=== PATIENT | male | born 1975 | race Caucasian/White ===

== ENCOUNTER 2017-03-07 18:07 | Emergency (ER) | payer BC ==
[2017-03-07 18:50] VITALS: BP 126/82
[2017-03-07] MEDS ORDERED: Azithromycin TAB* 250 MG PO ONE (19:38)
--- NOTE | 2017-03-07 19:38 | UC ---
Respiratory Complaint HPI - HPI Summary HPI Summary: Pt presents with c/o of cough, fatigue, fever, SOB X 10 days. - History of Current Complaint Chief Complaint: UCRespiratory Stated Complaint: COUGH Hx Obtained From: Patient Onset/Duration: Gradual Onset, Lasting Days - 10 Timing: Constant Severity Initially: Mild Severity Currently: Mild Character: Cough: Productive - yellow Aggravating Factors: Deep Breaths, Recumbent Position Associated Signs And Symptoms: Positive: Fever, Chills, Wheezing, URI, Nasal Congestion - Risk Factors Pulmonary Embolism Risk Factors: Smoking Cardiac Risk Factors: Smoking - Allergies/Home Medications Allergies/Adverse Reactions: Allergies Allergy/AdvReac Type Severity Reaction Status Date / Time No Known Allergies Allergy Verified 03/07/17 18:46 Home Medications: Home Medications guaiFENesin ER TAB [Mucinex*] 600 mg PO BID PRN 03/07/17 [History Confirmed ] PMH/Surg Hx/FS Hx/Imm Hx Previously Healthy: Yes - Surgical History Surgical History: Yes Surgery Procedure, Year, and Place: cyst - Family History Known Family History: Positive: Other - positive [facility] for URI - Social History Alcohol Use: Occasionally Substance Use Type: None Smoking Status (MU): Never Smoked Tobacco Review of Systems Constitutional: Fever, Chills, Fatigue Skin: Negative Eyes: Negative ENT: Negative Respiratory: Shortness Of Breath, Cough Cardiovascular: Negative Gastrointestinal: Negative Genitourinary: Negative Motor: Negative Neurovascular: Negative Musculoskeletal: Negative Neurological: Negative Psychological: Negative All Other Systems Reviewed And Are Negative: Yes Physical Exam Triage Information Reviewed: Yes Appearance: Ill-Appearing Vital Signs: Initial Vital Signs Temp 98.0 F 03/07/17 18:46 Pulse 75 03/07/17 18:46 Resp 16 03/07/17 18:46 BP 126/82 03/07/17 18:46 Pulse Ox 98 03/07/17 18:46 Eye Exam: Normal ENT Exam: Normal Neck exam: Normal Respiratory Exam: Other Respiratory: Positive: Decreased breath sounds - bilateral bases Cardiovascular Exam: Normal Musculoskeletal Exam: Normal Neurological Exam: Normal Psychological Exam: Normal Skin Exam: Normal UC Diagnostic Evaluation - Laboratory O2 Sat by Pulse Oximetry: 98 Respiratory Course/Dx - Differential Dx/Diagnosis Differential Diagnosis/HQI/PQRI: Bronchitis, Pulmonary Embolism Provider Diagnoses: Bronchitis Discharge - Discharge Plan Condition: Stable Disposition: HOME Prescriptions: Azithromycin TAB* [Zithromax TAB (Z-BRONWYN) 250 mg #6 tabs] 250 mg PO DAILY #4 tab Benzonatate CAP* [Tessalon 100 MG CAP*] 100 mg PO TID PRN #21 cap PRN Reason: Cough Fexofenadine (NF) [Federica 180 (NF)] 180 mg PO DAILY #10 tab predniSONE TAB* [Deltasone TAB*] 30 mg PO DAILY #9 tab Patient Education Materials: Acute Bronchitis (ED) Referrals: Diego Smith DO [Primary Care Provider] - If Needed
== END 2017-03-07 19:54 | disposition home or self-care (01) ==
LOC: UCCORT 18:07
DX: J20.9 Acute bronchitis, unspecified (principal); R50.9 Fever, unspecified
CPT/HCPCS: 99202; A9270-GY; G0463

== ENCOUNTER 2019-12-12 03:55 | Inpatient (IN) | payer BC ==
[2019-12-12] MEDS ORDERED: Ticagrelor* 90 MG TAB PO ONE (04:06)
[2019-12-12] MEDS ORDERED: Nitroglycerin TAB 0.4 MG* 0.4 MG TAB SL ONE (04:10)
--- NOTE | 2019-12-12 04:12 | ED ---
HPI Chest Pain - HPI Summary HPI Summary: Patient is a 44 y/o M presenting to [facility] via EMS with chief complaint of chest pain. Patient states that he has been experiencing intermittent chest pain over the past 3-4 days. This evening, his pain suddenly and significantly worsened, awakening him from sleep. Pain is characterized as a burning sensation. Pain at its worst was a 10/10 in severity. EMS was called and administered nitro x1 SL and 324 mg PO ASA. He states that the pain is improved slight and rates his current pain a 5/10 in severity. He notes that radiation of pain/numbness down his arms bilaterally onset during transport. He denies SOB, cough, dizziness, palpitations, pain to upper back. He is a current pack a day smoker. Patient reports that he is borderline for HTN and HLD, patient is not currently taking any BP or cholesterol medications. No Hx of diabetes reported. FMHx of AL in both parents is reported, patient states that his father had AL at his age and mother in her 50s. EMS arrived at 0354. EMS EKG suggest STEMI, STEMI code called at 0356. Home medications and allergies are reviewed. - History of Current Complaint Hx Obtained From: Patient Onset/Duration: Still Present Timing: Intermittent Initial Severity: Severe Current Severity: Moderate Pain Intensity: 5 Pain Scale Used: 0-10 Numeric Chest Pain Radiates: Yes Chest Pain Radiates To:: Arm Character: Burning Alleviating Factor(s): Medication, NTG 123, EMS Tx Associated Signs and Symptoms: Positive: Chest Pain. Negative: Dizziness, Shortness of Breath, Palpitations, Cough, Productive Cough, Nonproductive Cough , Back Pain - Allergy/Home Medications Allergies/Adverse Reactions: Allergies Allergy/AdvReac Type Severity Reaction Status Date / Time No Known Allergies Allergy Verified 12/12/19 04:14 Home Medications: Home Medications Azithromycin TAB* [Zithromax TAB (Z-BRONWYN) 250 mg #6 tabs] 250 mg PO DAILY #4 tab 03/07/17 [Rx] Benzonatate CAP* [Tessalon 100 MG CAP*] 100 mg PO TID PRN #21 cap 03/07/17 [Rx] Fexofenadine (NF) [Federica 180 (NF)] 180 mg PO DAILY #10 tab 03/07/17 [Rx] guaiFENesin ER TAB [Mucinex*] 600 mg PO BID PRN 03/07/17 [History Confirmed ] predniSONE 10 mg TAB [Deltasone 10 MG TAB*] 30 mg PO DAILY #9 tab 03/07/17 [Rx] PMH/Surg Hx/FS Hx/Imm Hx Endocrine/Hematology History: Denies: Hx Diabetes Cardiovascular History: Reports: Hx Hypercholesterolemia - borderline , Hx Hypertension - borderline - Surgical History Surgery Procedure, Year, and Place: cyst Infectious Disease History: Denies: Traveled Outside the [place] in Last 30 Days - Family History Known Family History: Positive: Cardiac Disease - Social History Alcohol Use: Occasionally Substance Use Type: Reports: None Smoking Status (MU): Current Some Day Smoker Review of Systems Constitutional: Other - negative - dizziness Positive: Chest Pain. Negative: Palpitations Negative: Shortness Of Breath, Cough Positive: Other - negative - back pain All Other Systems Reviewed And Are Negative: Yes Physical Exam - Summary Physical Exam Summary: Constitutional: Well-developed, Well-nourished, Alert. (-) Distressed Skin: Warm, Dry HENT: Normocephalic; Atraumatic Eyes: Conjunctiva normal Neck: Musculoskeletal ROM normal neck. (-) JVD, (-) Stridor, (-) Tracheal deviation Cardio: Rhythm regular, rate normal, Heart sounds normal; Intact distal pulses; The pedal pulses are 2+ and symmetric. Radial pulses are 2+ and symmetric. Pulmonary/Chest wall: Effort normal. (-) Respiratory distress, (-) Wheezes, (-) Rales Abd: Soft, (-) tenderness, (-) Distension, (-) Guarding, (-) Rebound Musculoskeletal: (-) Edema Neuro: Alert, Oriented x3 Psych: Mood and affect Normal Triage Information Reviewed: Yes Vital Signs On Initial Exam: Initial Vital Signs Temp 97.4 F 12/12/19 03:57 Pulse 60 12/12/19 03:57 Resp 17 12/12/19 03:57 BP 129/69 12/12/19 03:57 Pulse Ox 95 12/12/19 03:57 Vital Signs Reviewed: Yes Procedures - Sedation Patient Received Moderate/Deep Sedation with Procedure: No Diagnostics - Laboratory Result Diagrams: 12/12/19 04:02 12/12/19 04:02 Lab Statement: Any lab studies that have been ordered have been reviewed, and results considered in the medical decision making process. - Radiology CXR Radiology Interpretation Completed By: ED Physician Summary of Radiographic Findings: No acute process, pending official report. - EKG 0407 Cardiac Rate: NL - rate of 60 BPM EKG Rhythm: Sinus Rhythm Summary of EKG Findings: EKG showed sinus rhythm with rate of 60 BPM, positive inferior STEMI with ST elevation in leads II, III, and aVF. Reciprocal ST depression in lead aVF. ED physician has reviewed and interpreted this EKG. Chest Pain Course/Dx - Course Course Of Treatment: Patient is a 44 y/o M presenting to [facility] via EMS with chief complaint of chest pain. Patient states that he has been experiencing intermittent chest pain over the past 3-4 days. This evening, his pain suddenly and significantly worsened, awakening him from sleep. Pain is characterized as a burning sensation. Pain at its worst was a 10/10 in severity. EMS was called and administered nitro x1 SL and 324 mg PO ASA. He states that the pain is improved slight and rates his current pain a 5/10 in severity. He notes that radiation of pain/numbness down his arms bilaterally onset during transport. He denies SOB, cough, dizziness, palpitations, pain to upper back. He is a current pack a day smoker. Patient reports that he is borderline for HTN and HLD, patient is not currently taking any BP or cholesterol medications. No Hx of diabetes reported. FMHx of AL in both parents is reported, patient states that his father had AL at his age and mother in her 50s. EMS arrived at 0354. EMS EKG suggest STEMI, STEMI code called at 0356. ED EKG showed inferior STEMI with ST elevations in leads II, III, aVF and reciprocal ST depression in aVL. Patient 's case was discussed with Dr. Silvestre, who recommends Brillinta and Heparin. Dr. Silvestre will come to ED to evaluate the patient. During ED course, patient received heparin bolus of 4000 units, brillinta 180 mg PO, and nitro 0.4 mg SL. He was placed on heparin drip, 34946 units 20 mls/hr. CXR showed no acute process. Bloodwork was obtained. Trop was negative. BNP was 12. Only abnormal values were glucose 111, MCV 100, MCH 35. 0432 - Dr. Silvestre evaluated the patient and admitted the patient to the catheter lab. - Diagnoses Provider Diagnoses: STEMI (ST elevation myocardial infarction) - Provider Notifications Discussed Care Of Patient With: Yeyo Silvestre Time Discussed With Above Provider: 04:01 Instructed by Provider To: Other - Patient's case was discussed with Dr. Silvestre , who recommends Brillinta and Heparin. Dr. Silvestre will come to ED to evaluate the patient. 0432 - Dr. Silvestre evaluated the patient and admitted the patient to the catheter lab. Discharge ED - Sign-Out/Discharge Documenting (check all that apply): Patient Departure - admit - Discharge Plan Condition: Guarded Disposition: ADMITTED TO [facility] - Billing Disposition and Condition Condition: GUARDED Disposition: Admitted to [facility] - Attestation Statements Document Initiated by Nancy: Yes Documenting Scribe: DEA MILLER Provider For Whom Nancy is Documenting (Include Credential): WES KENNEDY MD Scribe Attestation: DEA Jewell, scribed for WES KENNEDY MD on 12/12/19 at 0649. Scribe Documentation Reviewed: Yes Provider Attestation: The documentation as recorded by the DEA brown accurately reflects the service I personally performed and the decisions made by me, WES KENNEDY MD Status of Scribe Document: Viewed
[2019-12-12 04:13] LABS: ABS Basophils 0.1 10^3/ul (0-0.2); ABS Eosinophils 0.5 10^3/ul (0-0.6); ABS Lymphocytes 2.8 10^3/ul (1.0-4.8); ABS Monocytes 0.7 10^3/ul (0-0.8); ABS Neutrophils 4.9 10^3/ul (1.5-7.7); Hematocrit 47 % (42-52); Hemoglobin 16.6 g/dL (14.0-18.0); Lymphocyte % 31.6 %; Mean Corpuscular HGB Conc 36 g/dL (31-36); Mean Corpuscular Hemoglobin 35 pg (27-31); Mean Corpuscular Volume 100 fL (80-94); Nucleated Red Blood Cells % 0.1; Platelet Count 256 10^3/uL (150-450); Red Cell Distribution Width 13 % (10-15)
[2019-12-12] MEDS ORDERED: Heparin DRIP 25,000 UNITS(*) 25,000 UNITS/500 ML BAG IV SCH (04:15)
[2019-12-12] MEDS ORDERED: Heparin 2 UNITS/ML IVPREMIX* 3,000 ML IV ONE (04:26)
[2019-12-12] MEDS ORDERED: VERAPAMIL 2.5 MG/ML 2 ML VIAL ** 5 mg/2 ml ONE (04:26)
[2019-12-12] MEDS ORDERED: nitroGLYCERIN DRIP* 25,000 MCG/250 ML BTL ONE (04:26)
[2019-12-12] MEDS ORDERED: Lidocaine 1% INJ* 10 MG/ML 30 ML SDV ONE (04:26)
[2019-12-12] MEDS ORDERED: Heparin(*) 1000 UNIT/ML 10 ML VIAL CATH LAB IV ONE (04:26)
[2019-12-12 04:27] LABS: Albumin 4.4 g/dL (3.2-5.2); Albumin/Globulin Ratio 1.8 (1-3); Calcium 9.3 mg/dL (8.6-10.3); EGFR African American 98.7 (>60); EGFR Non-African American 81.6 (>60); Globulin 2.5 g/dL (2-4); Potassium 3.8 mmol/L (3.5-5.0); Total Bilirubin 0.4 mg/dL (0.2-1.0); Total Protein 6.9 g/dL (6.4-8.9)
[2019-12-12] MEDS ORDERED: fentaNYL* 50 MCG/ML 2 ML VIAL (100 MCG VIAL) ONE (04:27)
[2019-12-12] MEDS ORDERED: Midazolam* 1 MG/ML 5 ML VIAL (5 MG) ONE (04:27)
[2019-12-12 04:30] LABS: Troponin I 0.01 ng/mL (<0.03)
[2019-12-12 04:36] LABS: Activated Partial Thrombo Time 31.3 seconds (26.0-38.0); INR 0.97 (0.82-1.09)
[2019-12-12] MEDS ORDERED: Iohexol 350 (CONTRAST) 200 ML MDV IV ONE ×3 (04:37→05:25)
[2019-12-12] MEDS ORDERED: Bivalirudin(*) 250 MG VIAL ONE (04:57)
[2019-12-12] MEDS ORDERED: Heparin VIAL(*) 5000 UNITS/ML VIAL (FIVE THOUSAND) IV SCH (05:00)
[2019-12-12] MEDS ORDERED: Zolpidem TAB* 5 MG PO PRN (05:42)
[2019-12-12] MEDS ORDERED: Docusate CAP* 100 MG PO PRN (05:42)
[2019-12-12] MEDS ORDERED: Acetaminophen TAB* 325 MG PO PRN (05:42)
[2019-12-12] MEDS ORDERED: Nitroglycerin TAB 0.4 MG* 0.4 MG TAB SL PRN (05:42)
[2019-12-12] MEDS ORDERED: NS 0.9% 1000 ML** 1,000 ML IV SCH (05:45)
[2019-12-12] MEDS ORDERED: Atorvastatin* 80 MG TAB PO ONE (05:51)
[2019-12-12] MEDS ORDERED: Atorvastatin* 80 MG TAB ONE (06:35)
--- NOTE | 2019-12-12 07:48 | HP ---
CC: Dr. Brock Euceda* ADMISSION HISTORY AND PHYSICAL: DATE OF ADMISSION: 12/12/19 CHIEF COMPLAINT: Chest discomfort with EKG by EMS suggesting ST segment elevation inferior wall myocardial infarction. HISTORY OF PRESENT ILLNESS: The patient is a 44-year-old gentleman who noticed over the past week or so having had multiple episodes of chest discomfort on and off, brief in nature. This morning in the early hours approximately 3 a.m. , he was awakened with worsening of these symptoms with a burning sensation in his chest, felt to be 10/10. He had radiation to the arms, but denied any specific shortness of breath, dizziness, or palpitations. He summoned the EMS. The EMS performed an EKG and were concerned about possible ST segment elevation inferior wall myocardial infarction. He received 1 nitroglycerin and 324 mg of aspirin. He was brought to the emergency room. In the emergency room , the EKG was repeated and felt to be STEMI and as such a STEMI alert was called. On my arrival, he still persisted with symptoms, albeit they were getting better but not gone. His EKG in the emergency room had revealed the ST segment elevation in III, more subtly in II and AVF and with mild ST elevation noted in the early precordial leads with reciprocal change in aVL and subtly in lead 1. He was given heparin bolus initially of 4000 with an additional 1000 units given on my arrival. In addition, he got 180 mg of Brilinta and had already received the aspirin therapy. Cardiac risk factors include a smoking history of 1 pack per day for many years. He has a family history with both his mother and father who had early heart attacks. He has reported borderline hypertension and hyperlipidemia and is not on any medication for it. He denies any diabetes. FAMILY HISTORY: Strong family history of early coronary artery disease both in his mother and his father. SOCIAL HISTORY: He smokes 1 pack per day as mentioned. REVIEW OF SYSTEMS: Pertinent to proceeding emergently to cardiovascular laboratory. The patient denies any history of stroke or TIA. Denies any history of hematochezia, hematemesis, or hematuria. He denies any history of kidney disease, and he is not allergic to contrast as best he knows. PHYSICAL EXAMINATION GENERAL: When I saw him in the emergency room, revealed a pleasant gentleman with chest discomfort still present. VITAL SIGNS: Blood pressure in the 120 to 130 range over 85, pulse in the 60s, respirations 20, O2 saturation 96%. NECK: Supple. No increased JVP. LUNGS: Clear with no active rales, rhonchi, or wheezes. HEART: Revealed no visible heaves. No palpable heaves or thrills. No significant systolic or diastolic murmur. ABDOMEN: Soft, nontender without organomegaly. EXTREMITIES: Without clubbing, cyanosis, or rachel pitting edema. Peripheral pulses were intact. The femoral pulses were noted without bruits. MUSCULOSKELETAL: The patient moves all extremities appropriate. PSYCHOLOGICAL: The patient with normal affect. NEUROLOGIC: The patient is alert and oriented with normal mentation. DIAGNOSTIC STUDIES/LAB DATA: EKG in the emergency room dated 12/12/19, time 4: 02 a.m., revealed sinus bradycardia, heart rate 59, mild ST segment elevation seen in II and aVF, and more prominent in III with reciprocal changes in aVL, and borderline biphasic T wave in I, mild ST elevation seen in V1 and V2. A repeat EKG done, time 4:07, revealed similar findings. OVERALL ASSESSMENT: Chauncey now presents with progressive angina pectoris culminating in an episode of continued chest discomfort starting approximately 3 a.m. His EKG is suggestive of an acute ST segment elevation inferior wall myocardial infarction and he has been appropriately given aspirin, Brilinta, and heparin therapy. The risks and benefits of cardiac catheterization were explained to him and he understood them and wished to proceed. Further management will be made pending the results of his cardiac catheterization. [id number]/CPS #: [id number] MTDD
[2019-12-12] MEDS ORDERED: Metoprolol Tartrate TAB* 25 MG PO SCH (09:00)
--- NOTE | 2019-12-12 09:07 | ECHO ---
*[facility]* [place] [address] Fax #: [phone] Transthoracic Echocardiogram Patient: Chauncey Nolan : 1975 Study Date: 12/12/2019 Age: 44 Gender: M HR: 55 bpm Height: 67 in /170.2 cm BSA: 2.02 m^2 Weight: 199.6 lb /90.7 kg BMI: 31.3 kg/m^2 *Site Specialist: * Ruth Garcia [facility] *Referring Physician: * Yeyo Silvestre MD *Reading Physician: * Esequiel Olmos MD Indications: Myocardial Infarction (new). History: Risk factors: Current tobacco use. Borderline Hypertension. Dyslipidemia. Conclusions Summary: - Left ventricle: The estimated ejection fraction is 50-55%. Hypokinesis of the basalinferoseptal myocardium. Hypokinesis of the basal-midinferolateral and inferior myocardium. - Right ventricle: Systolic function is normal. - Mitral valve: There is trace regurgitation. - Aortic valve: There is mild regurgitation with an eccentric jet. Can not rule out small ventricular septal defect. Transesophageal echocardiogram may be helpful - Tricuspid valve: There is trace to mild regurgitation. - Pulmonary arteries: Systolic pressure is within the normal range. - Study data: No prior study is available for comparison. Study data: Transthoracic echocardiogram. Procedure: Transthoracic echocardiography was performed. Image quality was good. Complete 2D, spectral Doppler, and color flow Doppler. Location: ICU Patient status: Inpatient. Patient room number: ICU-03. No prior study is available for comparison. Rhythm: Bradycardia. Findings Left ventricle: The cavity size is normal. Wall thickness is normal. The estimated ejection fraction is 50-55%. Regional wall motion abnormalities: Hypokinesis of the basalinferoseptal myocardium. Hypokinesis of the basal-midinferolateral and inferior myocardium. There is no consistent Doppler evidence of clinically significant diastolic dysfunction. Right ventricle: The cavity size is mildly dilated. Systolic function is normal. Ventricular septum: Cannot exclude a ventricular septal defect. Left atrium: The atrium is mildly dilated. Right atrium: The atrium is mildly dilated. Mitral valve: The leaflets are mildly thickened. There is no evidence of stenosis. There is trace regurgitation. Aortic valve: The valve is trileaflet. The leaflets are normal thickness. There is no evidence of stenosis. There is mild regurgitation with an eccentric jet. Can not rule out small ventricular septal defect. Transesophageal echocardiogram may be helpful Tricuspid valve: The leaflets are normal thickness. There is no evidence of stenosis. There is trace to mild regurgitation. Pulmonic valve: The leaflets are normal thickness. There is no evidence of stenosis. There is trace regurgitation. Aorta: Aortic root: The aortic root is appears normal. Ascending aorta: The ascending aorta is appears normal. Aortic arch: The aortic arch is appears normal. Pericardium: There is no significant pericardial effusion. Pulmonary arteries: The main pulmonary artery is normal-sized. Systolic pressure is within the normal range. Systemic veins: Inferior vena cava: The vessel is normal in size. There is (>= 50%) respiratory change in the IVC dimension. Measurements Left ventricle Value Ref Aortic valve Value Ref ADAM, LAX 5.0 cm 4.2 - 5.8 Terence diam, ED 2.4 cm ----- ESD, LAX 3.6 cm 2.5 - 4.0 Terence diam/bsa, ED 1.2 cm/m^2 ----- FS, LAX 28 % 25 - 43 Peak v, S 1.6 m/sec ----- PW, ED, LAX 0.8 cm 0.6 - 1.0 VTI, S 35.5 cm ----- FS 28 % 25 - 43 Mean grad, S 5.0 mm Hg ----- Mid-wall FS 15 % Peak grad, S 10.2 mm Hg ----- PW, ED 0.8 cm 0.6 - 1.0 LVOT/AV, VTI ratio 0.48 ----- E', lat terence, TDI 12.6 cm/sec >=10.0 E/e', lat terence, 5 Mitral valve Value Ref TDI Peak E 0.69 m/sec ----- E', med terence, TDI (L) 6.7 cm/sec >=7.0 Peak A 0.67 m/sec -- --- E/e', med terence, 10 Decel time 190 ms ----- TDI Peak E/A ratio 1 ----- E', avg, TDI 9.7 cm/sec E/e', avg, TDI 7 <=14 Pulmonic valve Value Re f Peak v, S 0.91 m/sec ----- LVOT Value Ref Peak grad, S 3.0 mm Hg ----- Peak avila, S 0.9 m/sec VTI, S 17.0 cm Tricuspid valve Value Ref Mean grad, S 1 mm Hg TR peak v 2.37 m/sec <=2.8 Peak RV-RA grad, S 22 mm Hg ----- Ventricular septum Value Ref IVS, ED 1.0 cm 0.6 - 1.0 Aortic root Value Ref Root diam 3.1 cm <4.2 Right ventricle Value Ref ADAM, LAX 3.2 cm Ascending aorta Value Ref ADAM minor ax, A4C 3.5 cm 1.9 - 3.5 AAo AP diam, S 3.3 cm ----- mid Pressure, S 25 mm Hg Aortic arch Value Ref Arch diam 2.7 cm ----- Left atrium Value Ref AP dim, ES 4.00 cm 3.00 - Decending aorta Value Ref 4.00 Eliud peak avila 0.98 m/sec ----- ML dim, A4C 3.5 cm SI dim, A4C 5.6 cm Pulmonary artery Value Ref Vol/bsa, ES, 1-p 22 ml/m^2 12 - 37 Pressure, S 22.0 mm Hg ----- A4C Vol/bsa, ES, A/L 23 ml/m^2 16 - 34 Inferior vena cava Value Ref Diam 1.5 cm ----- Right atrium Value Ref SI dim, ES 4.7 cm 3.4 - 5.3 ML dim, ES, A4C (H) 4.6 cm 2.6 - 4.4 Estimated RAP 3 mm Hg Legend: (L) and (H) geeta values outside specified reference range. Prepared and electronically signed by Esequiel Olmos MD 12/12/2019 09:06
[2019-12-12] MEDS: Ticagrelor* 90 MG TAB PO SCH ×2 (09:40→20:36)
[2019-12-12 10:37] LABS: Troponin I 4.47 ng/mL (<0.03)
[2019-12-12] MEDS ORDERED: Metoprolol Tartrate TAB* 25 MG PO ONE (10:45)
[2019-12-12] MEDS ORDERED: Lisinopril TAB* 5 MG PO SCH (12:00)
[2019-12-12 14:35] LABS: Urine Appearance Clear; Urine Bilirubin Negative (Negative); Urine Blood Negative (Negative); Urine Color Yellow; Urine Glucose Negative (Negative); Urine Ketones Negative (Negative); Urine Nitrite Negative (Negative); Urine Protein Negative (Negative); Urine Urobilinogen Negative (Negative)
--- NOTE | 2019-12-12 15:45 | CATH ---
CC: Dr. Euceda* CARDIAC CATHETERIZATION AND INTERVENTIONAL REPORT: DATE OF PROCEDURE: 12/12/19 REASON FOR THE CARDIAC CATHETERIZATION: The patient presents with acute ST- segment elevation inferior wall myocardial infarction. PROCEDURE: Coronary arteriography, primary stenting of the proximal right coronary artery with a 2.5 x16 mm Synergy drug-eluting stent post dilated to 2.65 mm, left heart catheterization, left ventriculography. CONSENT: The patient was interviewed and examined in the emergency room where the risks and benefits were explained. He understood them and wished to proceed. APPROACH UTILIZED: The right radial artery was assessed by ultrasound and found to be acceptable in size for an approach and as such this was utilized. PRE-CARDIAC CATHETERIZATION LABORATORY RESULTS: None available. In the middle of the case and toward the end of the case, laboratory results came back, hemoglobin and hematocrit of 16.6 and 47 with a platelet count of 256,000. BUN of 13, creatinine 1, sodium 138, potassium 3.8, chloride 103, bicarb 27. Troponin was still pending. EQUIPMENT UTILIZED: 1. Right radial artery sheath was a 6-Iranian Glidesheath Slender. 2. Diagnostic guidewire with a Joseph 260 length curved guidewire. 3. Diagnostic catheter: Coronary catheter was a 5-Iranian TIG 4 catheter. 3. Guide catheters utilized was a 6-Iranian FR-4 curve catheter, a 6-peruvian AL1 curve catheter, and a 6-Iranian IR-1.0 Heartrail III catheter. 4. Interventional wire was a 190 cm length All Star wire 5. Stent utilized was a Synergy 2.5 x 16 mm drug-eluting stent. 6. Post-stent deployment balloon catheter was a 2.5 x 12 mm long NC Emerge balloon. 7. Closure device was a regular sized Vasc Band closure device. 8. The left heart catheterization catheter was a 5-Iranian PIG short radial catheter. MEDICATIONS: Given during the procedure included radial artery cocktail including 300 mcg of nitroglycerin and 3 mg of verapamil. The patient already had gotten a heparin bolus in the emergency room. 1% lidocaine was utilized. Angiomax bolus and Angiomax drip was given when ACT came back subtherapeutic. The patient already received 180 mg of Brilinta in the emergency room. DESCRIPTION OF PROCEDURE: The patient was brought to the cardiovascular laboratory where a formal time-out was performed. He was prepped and draped in sterile fashion, and under ultrasound guidance, the right radial artery was cannulated and sheath was placed. Coronary arteriography was performed. It should be noted that the right coronary artery had an anterior takeoff necessitating an AL1 curve guiding catheter to cannulate it. The decision was made to intervene into the right coronary artery. As mentioned, attempts were made utilizing first a Heartrail followed by an FR-4 curve catheter and eventually an AL1 6-Iranian guide catheter. Once this was seated in place, the interventional procedure was ready to be started. Of note, an ACT had already been checked and found to be subtherapeutic and as such an Angiomax bolus and Angiomax drip was already given. The guidewire was advanced down the right coronary artery and primary stenting was performed followed by post stent deployment high pressure balloon inflations. Following this, left heart catheterization was performed followed by left ventriculography utilizing a total of 24 cc of Omnipaque dye at a rate of 12 cc/sec. The catheter was then pulled back across the aortic valve through to check gradient. At the end of the case, the catheter and sheath were removed and hemostasis was obtained with a Vasc Band. The reverse Barbeau was a B. The total contrast used was 225 cc of Omnipaque dye. The radiation exposure included 16.3 minutes of fluoro time. The air kerma radiation was 2389 mGy. The DAP radiation was 16,232 microgray per meter squared. RESULTS: HEMODYNAMIC DATA: Left heart catheterization, central aortic pressure recorded 129/69 with a mean of 94, left ventricular pressure 132 over left ventricular end- diastolic pressure of 20. LEFT VENTRICULOGRAPHY: Performed in the DEE projection revealed mild to moderate proximal inferior wall hypokinesis with preservation of the mid to distal inferior wall as well as the anterior wall overall ejection fraction approximately 45% to 50%. CORONARY ARTERIOGRAPHY: A. Left coronary artery: 1. Left main - somewhat short in nature with no significant obstruction. 2. Left anterior descending artery. The left anterior descending artery had mild luminal irregularities in its most proximal segment. Of note, in the mid segment, right after the first septal polisher implant, there was a mild narrowing of 35%. There was no significant lesion seen past this point with a short area of the left anterior descending artery that was intramyocardial with very mild systolic milking. There was a thin first diagonal branch followed by a small to moderate size trifurcating second diagonal branch. No significant disease was seen in the LAD, traversed to the apical region and onto the distal inferior wall. 3. Circumflex artery - a nondominant vessel supplying a first obtuse marginal branch which had an osteal narrowing of 35%. The continuation of circumflex supplied a larger obtuse marginal branch which traversed to the inferior-posterior apical region. The mid segment of this artery had moderate narrowing noted within it with approximately 45% noted. B. Right coronary artery - a dominant vessel supplying the PDA as well as 2 posterior left ventricular branches. It should be noted that there was an anterior takeoff to this vessel. On first injection, there was a critical 95% narrowing seen in the proximal portion; past this point the vessel was small in caliber diffusely with vessel size being 2.0 at best. As it turned down to the inferior surface, it became more normal in size to about 2.5 and it had mild diffuse disease in its distal portion prior to the posterior descending artery. There were no further critical stenoses seen throughout the vessel. INTERVENTION INTO PROXIMAL RIGHT CORONARY ARTERY: Successful reduction of critical 95% blockage using primary stenting with a 2.5 x 16 mm Synergy drug- eluting stent post dilated to 2.65 mm with KENAN 3 flow, no dissection seen and 0 % residual stenosis. OVERALL ASSESSMENT: Successful intervention into proximal right coronary artery as described above. Of note, it should be noted that on even subselective injections of the right coronary artery KENAN-3 flow was seen suggesting that the artery most likely spontaneously recannulated after getting the heparin and aspirin and Brilinta in the emergency room with him feeling somewhat better but clearly still having chest discomfort. The patient will be maintained on dual-antiplatelet therapy for minimum of a year. High dose statin therapy will be instituted as well as smoking cessation recommendations. Of note, the patient's right coronary artery does indeed have diffuse disease throughout it. We will check a fasting glucose on him and if it is elevated, we will check a hemoglobin A1c to make sure he is not also diabetic. [id number]/[facility] #: [id number] [facility]
[2019-12-12 16:37] LABS: Creatine Kinase 283 U/L (10-223)
[2019-12-12 16:41] LABS: CKMB ng/mL 30.7 ng/mL (0.6-6.3)
[2019-12-12 16:44] LABS: Troponin I 5.16 ng/mL (<0.03)
[2019-12-12] MEDS: Lisinopril TAB* 5 MG PO SCH (20:35)
[2019-12-12] MEDS: Metoprolol Tartrate TAB* 25 MG PO SCH (20:35)
[2019-12-12] MEDS ORDERED: Atorvastatin* 80 MG TAB PO SCH (21:00)
[2019-12-12 22:05] LABS: Creatine Kinase 226 U/L (10-223)
[2019-12-12 22:12] LABS: CKMB ng/mL 21.6 ng/mL (0.6-6.3); Troponin I 3.73 ng/mL (<0.03)
[2019-12-13 04:53] LABS: Albumin 3.9 g/dL (3.2-5.2); Albumin/Globulin Ratio 1.5 (1-3); BUN/Creatinine Ratio 14.4 (8-20); Calcium 9.1 mg/dL (8.6-10.3); EGFR African American 111.4 (>60); EGFR Non-African American 92.1 (>60); Globulin 2.6 g/dL (2-4); HDL Cholesterol 26.6 mg/dL; Potassium 4.5 mmol/L (3.5-5.0); Total Bilirubin 0.5 mg/dL (0.2-1.0); Total Protein 6.5 g/dL (6.4-8.9)
[2019-12-13] MEDS: Metoprolol Tartrate TAB* 25 MG PO SCH ×2 (07:48→21:19)
[2019-12-13] MEDS: Lisinopril TAB* 5 MG PO SCH ×2 (07:48→21:19)
[2019-12-13] MEDS: Aspirin 81 mg CHEW TAB* 81 MG TAB.CHEW PO SCH (07:48)
[2019-12-13] MEDS: Ticagrelor* 90 MG TAB PO SCH ×2 (07:48→21:20)
[2019-12-13] MEDS: CMCS: OMEGA-3 FATTY ACIDS (NF) 1,000 MG CAP PO SCH (07:49)
[2019-12-13 08:02] LABS: ABS Eosinophils 0.2 10^3/ul (0-0.6); ABS Lymphocytes 1.8 10^3/ul (1.0-4.8); ABS Monocytes 0.4 10^3/ul (0-0.8); ABS Neutrophils 4.9 10^3/ul (1.5-7.7); Eosinophil % 3.2 %; Hematocrit 43 % (42-52); Hemoglobin 15.3 g/dL (14.0-18.0); Lymphocyte % 23.9 %; Mean Corpuscular HGB Conc 36 g/dL (31-36); Mean Corpuscular Hemoglobin 36 pg (27-31); Mean Corpuscular Volume 100 fL (80-94); Mean Platelet Volume 8.5 fL (7.4-10.4); Platelet Count 181 10^3/uL (150-450); Red Blood Count 4.28 10^6 /uL (4.18-5.48); Red Cell Distribution Width 13 % (10-15); White Blood Count 7.3 10^3/uL (3.5-10.8)
[2019-12-13] MEDS ORDERED: Atorvastatin* 80 MG TAB PO SCH (21:00)
[2019-12-14] MEDS: Ticagrelor* 90 MG TAB PO SCH (07:47)
[2019-12-14] MEDS: Metoprolol Tartrate TAB* 25 MG PO SCH (07:47)
[2019-12-14] MEDS: Aspirin 81 mg CHEW TAB* 81 MG TAB.CHEW PO SCH (07:47)
[2019-12-14] MEDS: CMCS: OMEGA-3 FATTY ACIDS (NF) 1,000 MG CAP PO SCH (07:47)
[2019-12-14 07:54] VITALS: BP 110/63
[2019-12-14] MEDS ORDERED: Lisinopril TAB* 5 MG PO SCH (09:00)
--- NOTE | 2019-12-14 12:13 | DS ---
CC: Dr. López Hooper at [facility]; Dr. Euceda * DISCHARGE SUMMARY: DATE OF ADMISSION: 12/12/19 DATE OF DISCHARGE: 12/14/19 FINAL DIAGNOSIS: Acute ST-segment elevation inferior wall myocardial infarction. SECONDARY DIAGNOSES: 1. Coronary artery disease. 2. Hypertension. 3. Hyperlipidemia. 4. Tobacco abuse. DISCHARGE MEDICATIONS: 1. Aspirin 81 mg a day. 2. Atorvastatin 80 mg a day. 3. Lisinopril 2.5 mg twice a day. 4. Metoprolol tartrate 25 mg twice a day. 5. Ticagrelor 90 mg twice a day. 6. [place]-3 fatty acids 1000 mg once a day. 7. Nitroglycerin as needed. HISTORY OF PRESENT ILLNESS/HOSPITAL COURSE: The patient is a 44-year-old gentleman who came in, in the scrum master hours of 12/12/19, with an acute ST- segment elevation inferior wall myocardial infarction. Symptoms started at approximately 3 in the morning, but he was in by 4 in the morning. He received heparin and Brilinta, and had received aspirin therapy by the paramedics. He was feeling somewhat better, but still had symptoms persisting. EKG in the emergency room revealed ST-segment elevation with reciprocal changes in the lateral leads. He was taken emergently for cardiac catheterization, which revealed a subtotally occluded proximal right coronary artery with a critical 95% narrowing. Past this point, the right coronary artery in general was diffusely diseased and somewhat small in caliber. As it turned down to the inferior surface of the heart, it became somewhat larger, perhaps to as wide as 2.5 mm. His left coronary artery system had [id number]-[id number] disease within the left anterior descending and circumflex artery as described in the cardiac catheterization report (please review the cardiac catheterization report for complete details). He underwent intervention into proximal right coronary artery with primary stenting utilizing a 2.5 x 16 mm Synergy drug-eluting stent post-dilated to 2.65 mm, successfully reducing the critical 95% lesion with residual stenosis as 0% KENAN-3 flow and no dissection seen. During the hospitalization, an echocardiogram was performed later in the morning of 12/12/19, and revealed hypokinesis of the basilar inferior septum and the basal, mid, inferior, and lateral inferior wall with EF of 50% to 55% with mild mitral regurgitation. OF NOTE, a very small ventriculoseptal defect could not be ruled out around the aortic valve area seen in the 4 chamber apical view as well as in the parasternal long axis view. There was no evidence of right-sided dilatation. He was eventually up and about with no further symptoms. Of note, his troponin peaked in the range of 5.16. His EKG by the day of discharge had revealed a Q- wave in III with some degree of preserved R-wave and III with trivial Q-waves in II and aVF. There was no ST segment depression noted in I or aVL. PHYSICAL EXAMINATION: On the day of discharge revealed vital signs of blood pressure 110/63, pulse 71 and regular, respirations 17, O2 saturation on room air 98%. Neck was supple. No increased JVP. Chest was clear to A and P with no active rales, rhonchi or wheezes. Heart revealed no visible heaves. No palpable heaves or thrills. Normal S1 and S2. No appreciable significant systolic or diastolic murmur. Abdomen was soft, nontender without organomegaly. Extremities were without clubbing, cyanosis or rachel pitting edema. The right radial artery site was well healed. There was no significant hematoma and good antegrade flow. At the time of discharge, the patient had already been reading his cardiac education booklet. He had his stent card as well and the patient has an appointment scheduled to see Dr. Hooper of the [facility] in his [place] office next Wednesday. I answered all of his questions to his satisfaction. He was discharged to home in stable condition. [id number]/[facility] #: [id number] [facility]
--- NOTE | 2019-12-16 09:38 | HP ---
HISTORY AND PHYSICAL: DATE OF ADMISSION: 12/12/19 ADDENDUM: MEDICAL HISTORY: 1. Borderline hypertension. 2. Borderline hyperlipidemia. [id number]/[facility] #: [id number]
== END 2019-12-14 11:00 | disposition home or self-care (01) | DRG 174 ==
LOC: ED 03:55 → CHICATH 04:33 → ICU 05:42 → MEDTELE 12-13 09:19
PROVIDERS: ADMIT Internal Medicine Cardiovascular Disease; ATTEND Internal Medicine Cardiovascular Disease
PROC: B2111ZZ Fluoroscopy of Multiple Coronary Arteries using Low Osmolar Contrast (ICD-10-PCS; 2019-12-12)
PROC: B2151ZZ Fluoroscopy of Left Heart using Low Osmolar Contrast (ICD-10-PCS; 2019-12-12)
PROC: 4A023N7 Measurement of Cardiac Sampling and Pressure, Left Heart, Percutaneous Approach (ICD-10-PCS; 2019-12-12)
PROC: 027034Z Dilation of Coronary Artery, One Artery with Drug-eluting Intraluminal Device, Percutaneous Approach (ICD-10-PCS; principal; 2019-12-12 04:30)
DX: I21.19 ST elevation (STEMI) myocardial infarction involving other coronary artery of inferior wall (principal); Q21.0 Ventricular septal defect; I25.10 Atherosclerotic heart disease of native coronary artery without angina pectoris; E78.5 Hyperlipidemia, unspecified; I34.0 Nonrheumatic mitral (valve) insufficiency; E78.00 Pure hypercholesterolemia, unspecified; F17.210 Nicotine dependence, cigarettes, uncomplicated; Z79.82 Long term (current) use of aspirin; Z79.899 Other long term (current) drug therapy; Z79.02 Long term (current) use of antithrombotics/antiplatelets; Z28.21 Immunization not carried out because of patient refusal
CPT/HCPCS: 36415; 71045; 80053; 80061; 81003; 82550; 82553; 83605; 83721; 83880; 84484; 85025; 85347; 85610; 85730; 87641; 93005; 93306; 99285; A9270-GY; C1725; C1769; C1876; C1887; C9606-RC; J0583; J1644; J2250; J3010